=== PATIENT | male | born 1970 | race Caucasian/White ===

== ENCOUNTER → 2018-09-25 16:06 | Outpatient (CLI) | payer BC, SELFPAY ==
--- NOTE | 2018-09-25 16:12 | XR_ITS ---
XR chest 2V HISTORY: Cough ITS.REASON: BRONCHITIS ORDERING PHYSICIAN: Vivian Arciniega PATIENT AGE: 48 years COMPARISON: FINDINGS: The cardiomediastinal silhouette and pulmonary vascularity are within normal limits. The lungs are clear without infiltrates, suspicious nodules, or pleural effusions. There are degenerative changes in the thoracic spine No acute bony abnormalities. IMPRESSION: No acute finding
== END ==
PROVIDERS: PCP Family Medicine; Visit Provider Nurse Practitioner Family
DX: J40 Bronchitis, not specified as acute or chronic (principal)
CPT/HCPCS: 71046

== ENCOUNTER → 2021-10-25 15:32 | Outpatient (CLI) | payer BC, SELFPAY | PROVIDERS: PCP Family Medicine; Visit Provider Family Medicine | DX: Z20.822 Contact with and (suspected) exposure to COVID-19 (principal) | CPT/HCPCS: C9803; U0003; U0005 ==

== ENCOUNTER → 2021-11-10 09:12 | Outpatient (CLI) | payer BC, SELFPAY ==
--- NOTE | 2021-11-10 | CA_ITS ---
APPROVED REPORT Exam: Exercise Treadmill Technologist: Jing Carcamo, Ht: 6 ft 1 in Wt: 220 lbs BSA: 2.24 m2 HR: 65 bpm BP: 124/74 mmHg Rhythm: NSR, T wave abn in lead 3 and aVF Medical History Medical History: HTN, Hyperlipidemia Medications: Losartan,,,,, Crestor,,,,, Cardiac Risk Factors: HTN, Hyperlipidemia, FHX of CAD Stress Test Details Test: Ruben HR Resting HR: 90 bpm Max Heart Rate (APMHR): 169.175742 bpm Max HR Achieved: 161 bpm Target HR (85% APMHR): 143.050196 bpm % of APMHR: 95.27 Recovery HR: 146 bpm BP Resting BP: 133/86 mmHg Max BP: 210/84 mmHg Recovery BP: 210.0/90.0 mmHg ECG Resting ECG: NSR, T wave abn in lead 3 and aVF Clinical Exercise duration: 12:01 min Highest Stage Achieved: Exercise capacity: 12.8 METs Stress ECG Conclusion Pt exercised total of 12:00, completing 4 stages of ruben protocol. No CP noted. No arrhythmias noted. Normal ST response to exericse with pseudonormalization of baseline T wave abns. Probably normal GXT with decreased sensitivity due to baseline T wave abns. Good exercise tolerance. GXT only. Test Summary REST . . . . . . . Standing REST 03:07 0.0 0.0 90 . 133/ 86 . . Stage 1 01:00 10.0 1.7 90 . . . . Stage 1 02:00 10.0 1.7 98 . . . . Stage 1 03:00 10.0 1.7 99 . 164/ 80 . . Stage 2 01:00 12.0 2.5 110 . . . . Stage 2 02:00 12.0 2.5 118 . . . . Stage 2 03:00 12.0 2.5 117 . 186/ 80 . . Stage 3 01:00 14.0 3.4 131 . . . . Stage 3 02:00 14.0 3.4 138 . . . . Stage 3 03:00 14.0 3.4 140 . 210/ 84 . . Stage 4 01:00 16.0 4.2 150 . . . . Stage 4 02:00 16.0 4.2 157 . . . . Stage 4 03:00 16.0 4.2 160 . . . . Stage 5 00:01 18.0 5.0 160 . . . Stop exercise at 12:01 RECOVERY 01:00 0.0 0.0 142 . . . . RECOVERY 02:00 0.0 0.0 113 . 210/ 90 . . RECOVERY 03:00 0.0 0.0 108 . 126/ 81 . . RECOVERY 04:00 0.0 0.0 100 . 145/ 82 . . RECOVERY 05:00 0.0 0.0 94 . 136/ 74 . . RECOVERY 05:19 0.0 0.0 95 . 136/ 74 . . Electronically signed by : Pal Cuba MD 11/10/2021 11:44:21
== END ==
PROVIDERS: PCP Family Medicine; Visit Provider Family Medicine
DX: I10 Essential (primary) hypertension (principal)
CPT/HCPCS: 93017

== ENCOUNTER 2024-03-06 14:46 | Outpatient (POV) | payer BC, SELFPAY ==
[2024-03-06 15:00] VITALS: BP 147/95; PULSE 72; RESP 18; O2SAT 97; BMI 30.3
--- NOTE | 2024-03-06 16:17 | A.OFFVIS_ITS ---
HPI Data of Consult Patient: new to practice Consult date: 03/06/24 Requesting Physician: Matilde Pineda APRN Primary Care Provider: Barbie Barroso MD Consult Narrative Reason for consult: Low back pain, right leg pain, occasional left leg pain History of present illness: Mr. Middleton is a 53 year old male who presents today as a new patient. He is a referral from Dr. Barroso's office. Today he rates his pain a 7 out of 10. Patient states he has been experiencing chronic low back pain that does radiate down his entire right leg with occasional left leg symptoms. Patient states that this did originally start back in the and he did undergo a discectomy and laminectomy. Patient states then he later went to a Dr. Ely who did do an experimental injection of chymopapain however this caused significant worsening of issues. He states that he had to recover for this for about 6 months and then still was dealing with some additional side effects. Patient states that then in 2015 when he had worsening pain he went to Dr. Fisher who did discuss about a possible lumbar fusion however he was not interested in this option so they went and then just cleaned out some of his lumbar disc. Patient states it did help somewhat however he continues to have a constant aching, burning, tingling sensation into his extremity. Patient has tried oral medications, heat and ice and topicals with minimal relief. Patient does state that he went to physical therapy with no additional improvement and did go to the chiropractor for 6 different visits however they were not able to give any relief and ended up releasing him because there was not anything else that he could do. Patient does state that he has had some oral steroids that helped however it was short-lived. Patient is currently on Advil and meloxicam however states it is really not doing anything. His Neftaly has been reviewed and is appropriate. CC: Matilde Pineda APRN [facility] Disclaimer: The information contained in this section may have been updated after the patient was seen, as this information can be updated by other users. Medical History (Updated 03/06/24 @ 16:24 by Matilde Pineda APRN) HTN (hypertension) HLD (hyperlipidemia) Lumbar disc herniation Surgical History (Updated 03/06/24 @ 14:57 by Grace Evans RN) H/O microdiscectomy History of appendectomy Family History (Updated 03/06/24 @ 14:56 by Grace Evans RN) Other Heart disease Social History Smoking Status: Unknown if ever smoked alcohol intake: never current occupational status: other Travel in the last 8 weeks: None Review of Systems Review of Systems Review of systems:: pertinent systems reviewed and negative unless documented below Review of systems (narrative): Review of Systems: General: No recent weight changes, no fever, no sleep disturbances Respiratory: No cough, no shortness of air, no recurring pulmonary infections Cardiovascular/peripheral vascular: No chest pain, no palpitations, no edema, no shortness of breath Gastrointestinal: No new onset incontinence, normal bowel movements reported Genitourinary: No new onset incontinence Musculoskeletal: Low back pain, right leg pain, occasional left leg pain Psychiatric: [Normal mood/affect] Neurological: [Denies weakness in extremities], [denies balance issues] Meds Home Medications and Allergies New Prescriptions to Start Prescriptions: Allergies Allergy/AdvReac Type Severity Reaction Status Date / Time No Known Allergies Allergy Verified 03/06/24 14:54 Objective Narrative: Physical Exam: General: Alert and oriented x3, no acute distress, pleasant and cooperative Lungs: Respirations even and unlabored, symmetrical chest expansion Eyes: PERRL Musculoskeletal: Flexion and extension of lumbar [spine] somewhat guarded secondary to pain, [antalgic gait noted] Neurological: Speech clear, no gross sensory deficit Additional findings Additional findings: MRI lumbar spine with and without contrast Findings: There is mild thoracolumbar scoliosis. Schmorl's nodes are present at all visualized levels. Disc desiccation and mild disc space narrowing are present at the lower 4 lumbar levels. T10-11: No posterior disc displacement. Facet hypertrophy results in mild bilateral neuroforaminal narrowing. T11-12: No posterior disc displacement. Facet hypertrophy results in mild right and mild to moderate left neuroforaminal narrowing with mild narrowing of the thecal sac T12-L1: Disc space narrowing and disc desiccation are present. No posterior disc L1-L2: Mild circumferential disc bulge is present without significant stenosis or neuroforaminal encroachment L2-L3: Disc space narrowing, mild circumferential disc bulge with mild facet hyp ertrophy are present. Minimal narrowing of the thecal sac L3-L4: Mild disc bulge present. There is minimal narrowing of the neuroforamina and thecal sac L4-L5: There was previous laminotomy. Mild disc bulges present. Enhancement of the posterior disc. There is a posterior right lower disc extrusion extending caudally. This is surrounded by enhancing granulation tissue and there is also enhancement in the contiguous disc. Extrusion causes severe narrowing of the superior right subarticular zone with effacement of the right L5 nerve root. There is mild narrowing of the thecal sac. No significant neuroforaminal encroachment L5-S1: Evidence of previous left laminotomy. A slight retrolisthesis and a slight disc bulge are present. Mild facet hypertrophy present. Mild neuroforaminal narrowing without central spinal stenosis. Enhancing granulation tissue is present in the ventral leftward epidural space contiguous with that left S1 nerve root Assessment and Plan *Assessment and plan (1) Degenerative disc disease, lumbar: Status: Acute Category: Medical Code(s): M51.36 - Other intervertebral disc degeneration, lumbar region (2) Lumbar radiculopathy: Status: Acute Category: Medical Code(s): M54.16 - Radiculopathy, lumbar region (3) Lumbar nerve root impingement: Status: Acute Category: Medical Code(s): M54.16 - Radiculopathy, lumbar region Plan Patient is experiencing significant pain in his low back that does radiate down his entire right extremity. Patient did have limited range of motion of his lumbar spine. I did review over his lumbar imaging and discussed with the patient that I do believe he would benefit from a lumbar epidural steroid injection at the L4-L5 level. Risk and benefits were discussed with the patient and at this time he would like time to think on it and review over the medications that we will be in the injection. I have discussed with the patient that I will have him return to clinic in 2 weeks for reevaluation of symptoms and plan of care. Patient was counseled that he can call and schedule this injection over the phone if he decides to between now and the next appointment. Patient has been instructed to contact the clinic with any concerns before the next appointment. Dr. Dodd has reviewed this note and agrees with this plan of care. This note was dictated using voice recognition software and make contain errors or omissions. All injections are used with Lidocaine or Bupivacaine and Depo Medrol.
--- OUTSIDE RECORDS SUMMARY | 2024-03-07 04:13 | XMS_ITS ---
[facility] Address [address] [place] [id number] Care Team Providers Care Performance Test Engineer Name Role Phone Chris Esparza Primary Care Provider [phone] Archie Barroso Unavailable [phone] ALLERGIES No Known Allergies REASON FOR REFERRAL Reason L4-5 herniation, rig ht sciatica Diagnosis 1 Lumbago with sciatic a, right side (M54.41) [facility] Referring Provider First Name Archie Caro Referring Provider Last Name Dharmesh Referring Provider Speciality Family Pra ctice Referred Provider Specialty Pain Managem ent General Notes Brianna Menjivar 02/15/20 24 11:28:09 AM > faxed referral to [facility] Pain Management Referral Priority Routine REASON FOR VISIT 3 month f/u, Needs labs, colon cancer screening, Tdap, & shingles vaccine MEDICATIONS Medication SIG (Take, Route, Frequency, Duration) Notes Start Date End Date Status Losartan Potassium 50 MG 1 tablet Orally Two times a day for 90 days Active Triamterene-HCTZ 37.5-25 MG 1 cap(s) ora lly once a day for 90 days Active Medrol 4 MG as directed orally d aily for 6 days 02/15/2024 Active Meloxicam 15 MG take 1 tablet by karan th daily for 30 day(s) Active Rosuvastatin Calcium 40 MG 1 tablet Oral ly Once a day for 30 day(s) 11/08/2023 Active PROBLEMS Problem Type ICD Code Onset Dates Problem Status W/U Status Risk SNOMED Code Notes Problem Lumbar disc herniation (M51.26) Active confirmed 580333981 VITAL SIGNS Weight 233.2 lbs 02/15/2024 Blood pressure systolic 124 mm Hg 02/15/20 24 Blood pressure diastolic 82 mm Hg 024 Heart Rate 74 /min 02/15/2024 Height 74 in 02/15/2024 BMI 29.94 kg/m2 02/15/2024 Encounters Encounter Location Date Provider Diagnosis [facility] [address] [place] [address] [address] [place], [place] [id number] 02/15/2024 Archie Barroso Lumbago with sciatic a, right side M54.41 ; Other chronic pain G89.29 and Lumbar disc herniation M51.26 ASSESSMENTS Encounter Date Diagnosis Assessment Notes Treatment Notes Treatment Clinical Notes 02/15/2024 Lumbago with sciatica, right side (ICD-10 - M54.41) 02/15/2024 Other chronic pain (ICD-10 - G89.29) 02/15/2024 Lumbar disc herniation (ICD-10 - M51.26) PLAN OF TREATMENT Medication Medication Name Sig Start Date Stop Date Notes Medrol 4 MG as directed orally daily for 6 days 02/15/2024 Meloxicam 15 MG take 1 tablet by mouth daily for 30 day(s) Referrals Referral Date Details L4-5 herniation, rig ht sciatica Next Appt Details Follow Up: 2 Months, Reason: Provider Name:Archie Marroquin er, 04/17/2024 04:00:00 PM, [address] [place] [address], [address], [place], [place], [id number], Progress Notes * Examination Category Sub-Category Detail Notes General Examination HEENT: unremarkable Heart: RSR Lungs: clear to auscultatio n Abdomen: soft and nontender Extremities: no leg edema General Appearance: NAD Skin: normal, no rash Neurologic Exam: Intact, gait normal Neck: supple, no lymphaden opathy Oral cavity: no lesions, mucosa m oist and WNL, no erythema Peripheral pulses: normal Back: nontender lumbar par aspinals Chest: normal shape and exp ansion History and Physical Notes * HPI (History of Present Illness) Category Sub-Category Detail Notes Cardiology Short of Breath Chest Pain Palpitations Dizziness Consultation Request Notes Referral Date Referring Provider Referred Provider Not es 02/15/2024 Archie Barroso , L4-5 herni ation, right sciatica
--- OUTSIDE RECORDS SUMMARY | 2024-03-07 04:13 | XMS_ITS ---
Author Organization [facility] Address [address] [place] [id number] Care Team Providers Care High Density Finishing Operator Name Role Phone Chris Esparza Primary Care Provider ALLERGIES No Known Allergies REASON FOR VISIT back pain MEDICATIONS Medication SIG (Take, Route, Frequency, Duration) Notes Start Date End Date Status Meloxicam 15 MG 1 tablet Orally Once a day for 30 day(s) 11/29/2023 Active Triamterene-HCTZ 37.5-25 MG 1 cap(s) ora lly once a day for 90 days Active Rosuvastatin Calcium 40 MG 1 tablet Oral ly Once a day for 30 day(s) 11/08/2023 Active Losartan Potassium 50 MG 1 tablet Orally Two times a day for 90 days Active PROBLEMS Problem Type ICD Code Onset Dates Problem Status W/U Status Risk SNOMED Code Notes Problem Lumbago with sciatica, right side (M54.41) Active confirmed [id number] Problem Other chronic pain (G89.29) Active confirmed 67082558 VITAL SIGNS Weight 234.2 lbs 11/29/2023 Blood pressure systolic 130 mm Hg 11/29/19 24 Blood pressure diastolic 82 mm Hg 024 Heart Rate 70 /min 11/29/2023 Height 74 in 11/29/2023 BMI 30.07 kg/m2 11/29/2023 Encounters Encounter Location Date Provider Diagnosis [place] [address] [facility] [address] [place] [id number] 11/29/2023 Chris Esparza Lumbago with sciatic a, right side M54.41 ; Other chronic pain G89.29 and Right leg weakness R29.898 ASSESSMENTS Encounter Date Diagnosis Assessment Notes Treatment Notes Treatment Clinical Notes 11/29/2023 Lumbago with sciatica, right side (ICD-10 - M54.41) Home exercise program provided to patient 11/29/2023 Other chronic pain (ICD-10 - G89.29) 11/29/2023 Right leg weakness (ICD-10 - R29.898) PLAN OF TREATMENT Medication Medication Name Sig Start Date Stop Date Notes Meloxicam 15 MG 1 tablet Orally Once a day for 30 day(s) 0 11/29/2023 Treatment Notes Assessment Notes Lumbago with sciatica, right side Home e xercise program provided to patient Next Appt Details Follow Up: via phone to repo rt test results, Reason: Provider Name:Archie Marroquin er, 04/17/2024 04:00:00 PM, [address] [facility] [address] [facility], [address], [place], [place], [id number], Progress Notes * Examination Category Sub-Category Detail Notes General Examination General Appearance: NAD Lower back Straight leg raising test: posit gaye at 45 degrees on right Motor system: decreased hamstring strength on right Gait: normal Inspection: normal curvature of spine Palpation: no vertebral spine t enderness Range of motion: pain down right leg with hyperextension History and Physical Notes * HPI (History of Present Illness) Category Sub-Category Detail Notes Lower back radiation of pain Pt complains o f rt lower back pain that radiates down to rt ankle. Pt states he was putting up drywall on 11/09 and has had the pain since then. Pt has been icing area and taking Tylenol but pain has not improved
--- OUTSIDE RECORDS SUMMARY | 2024-03-07 04:13 | XMS_ITS | Patient Health Record ---
Author Organization [facility] Address [address] [place] [id number] Care Team Providers Care Curtain Stretcher Name Role Phone Chris Esparza Primary Care Provider Archie Barroso Unavailable [phone] ALLERGIES No Known Allergies RESULTS Component Value Reference Range Notes P-Comprehensive Metabolic Pa haim (CMP) Reviewed date:11/02/2023 09:10:23 AM Interpretation:bun 21 Performing Lab: Notes/Report: Test performed by [facility] [address] [place] [address] , [address], [place] [address] Kenton Mcpherson MD, Manufacturing Coordinator CLIA: [id number] Sodium 144 135-145 mEq/L Potassium 4.2 3.5-5.3 mEq/L Chloride 104 97-108 mEq/L CO2 27 22-32 mEq/L Glucose 92 65-99 mg/dL BUN 21 6-20 mg/dL Creatinine 1.07 0.70-1.30 mg/dL Calcium 9.9 8.6-10.4 mg/dL eGFR by Creatinine 83 >59 mL/min/1.73m2 Protein 7.2 6.0-8.3 g/dL Albumin 4.5 3.5-5.3 g/dL Alkaline Phosphatase 42 40-129 IU/L ALT (SGPT) 36 <5-55 IU/L AST (SGOT) 27 <5-46 IU/L Bilirubin, Total 1.0 <0.2-1.2 mg/dL A/G Ratio 1.7 1.1-2.5 mg/dL P-Lipid Panel Reviewed date:11/02/2023 09:10:23 AM Interpretation:non-hdl 136 Performing Lab: Notes/Report: Test performed by [facility] [address] [place] [address] Kenton Mcpherson MD, Manufacturing Coordinator CLIA: [id number] Cholesterol 176 <200 mg/dL Triglycerides 138 <150 mg/dL HDL Cholesterol 40 >39 mg/dL Cholesterol / HDL Ratio 4.40 0.00-4.99 Ratio Non-HDL Cholesterol 136 <130 mg/dL LDL Cholesterol (Calculation) 108 <130 mg/dL LDL Cholesterol Levels* Less than 100 mg/dL Optimal 100 to 129 mg/dL Near Optimal/ Above Optimal 130 to 159 mg/dL Borderline High 160 to 189 mg/dL High 190 mg/dL and above Very High * Categories as recommended by the 2004 ATPIII guidelines LDL/HDL Ratio 2.7 <3.3 Ratio LDL Cholesterol Patient History Test Date: 10/30/2023 LDL Results: 108 Units: mg/dL % Change: - P-PSA Reviewed date:11/02/2023 09:10:23 AM Interpretation:Normal Performing Lab: Notes/Report: Test performed by [facility] [address] [place], [place] [address] Kenton Mcpherson MD, Manufacturing Coordinator CLIA: [id number] PSA 0.56 <4.00 ng/mL Please note this is an ultrasensitive PSA assay with a lower limit of detection of 0.014 ng/mL. This test is performed by the [employer] ECLIA methodology. Values obtained with different assay methods or kits cannot be directly compared. REASON FOR REFERRAL Reason L4-5 herniation, rig ht sciatica Diagnosis 1 Lumbago with sciatic a, right side (M54.41) [facility] Referring Provider First Name Archie Gordo Referring Provider Last Name Dharmesh Referring Provider Speciality Family Pra ctice Referred Provider Specialty Pain Managem ent General Notes Brianna Menjivar 02/15/20 24 11:28:09 AM > faxed referral to [facility] Pain Management Referral Priority Routine MEDICATIONS Medication SIG (Take, Route, Frequency, Duration) Notes Start Date End Date Status Rosuvastatin Calcium 40 MG 1 tablet Oral [...] karan th daily for 30 day(s) Active SOCIAL HISTORY Sex Assigned At : Social History Observation Description Sex Assigned At Unknown PROBLEMS Problem Type ICD Code Onset Dates Problem Status W/U Status Risk SNOMED Code Notes Problem Essential hypertensi on (I10) Active confirmed 61766366 Problem Anxiety (F41.9) Active confirmed 808273 02 Problem Lumbago with sciatic a, right side (M54.41) Active confirmed 471150318 Problem Other chronic pain (G89.29) Active confirmed 51874062 Problem Upper respiratory tr act infection, unspecified type (J06.9) Active confirmed 82767804 Problem Lumbar disc herniati on (M51.26) Active confirmed 223321160 Problem Pure hypercholesterolemia (E78.00) Active confirmed 474875981 Problem Seasonal allergic rhinitis, unspecified trigger (J30.2) Active confirmed 130484865 VITAL SIGNS Heart Rate 74 /min 02/15/2024 Blood pressure diastolic 82 mm Hg 02/15/2024 Height 74 in 02/15/2024 Blood pressure systolic 124 mm Hg 02/15/2024 Weight 233.2 lbs 02/15/2024 BMI 29.94 kg/m2 02/15/2024 Encounters Encounter Location Date Provider Diagnosis [facility] [address] [facility] [address] [place], [place] [id number] 10/01/2023 Archie Barroso [facility] [address] [facility] [address] [place], [place] [id number] 10/01/2023 Chris Wingo Pure hypercholestero lemia E78.00 [facility] [address] [facility] [address] [place], [place] [id number] 10/30/2023 Archie Barroso Essential hypertensi on I10 ; Prostate cancer screening Z12.5 and Pure hypercholesterolemia E78.00 [facility] [address] [facility] [address] [place], [place] [id number] 10/30/2023 Chris Wingo [facility] [address] [facility] [address] [place], [place] [id number] 11/02/2023 Archie Barroso [facility] [address] [facility] [address] [place] [id number] 11/08/2023 Archie Barroso Pure hypercholestero lemia E78.00 and Essential hypertension I10 [facility] [address] [facility] [address] [place] [id number] 11/29/2023 Chris Wingo Lumbago with sciatic a, right side M54.41 ; Other chronic pain G89.29 and Right leg weakness R29.898 [facility] [address] [facility] [address] [place], [place] [id number] 12/04/2023 Chris Wingo [facility] [address] [facility] [address] [place] [id number] 02/15/2024 Archie Barroso Lumbago with sciatic a, right side M54.41 ; Other chronic pain G89.29 and Lumbar disc herniation M51.26 ASSESSMENTS Encounter Date Diagnosis Assessment Notes Treatment Notes Treatment Clinical Notes 02/15/2024 Lumbago with sciatic a, right side (ICD-10 - M54.41) 02/15/2024 Other chronic pain ( ICD-10 - G89.29) 10/01/2023 Pure hypercholestero lemia (ICD-10 - E78.00) 10/30/2023 Essential hypertensi on (ICD-10 - I10) 10/30/2023 Prostate cancer scre ening (ICD-10 - Z12.5) 11/08/2023 Pure hypercholestero lemia (ICD-10 - E78.00) 11/29/2023 Lumbago with sciatic a, right side (ICD-10 - M54.41) Home exercise program provided to patient 11/29/2023 Other chronic pain ( ICD-10 - G89.29) 11/29/2023 Right leg weakness ( ICD-10 - R29.898) 10/30/2023 Pure hypercholestero lemia (ICD-10 - E78.00) 11/08/2023 Essential hypertensi on (ICD-10 - I10) 02/15/2024 Lumbar disc herniati on (ICD-10 - M51.26) PLAN OF TREATMENT Next Appt Details Provider Name:Arhcie Gordo Lopez er, 04/17/2024 04:00:00 PM, [address] [facility], [address], [place], [place], [id number], Insurance Providers Payer Name Payer Address Payer Phone Subscriber Number Group Number Insured Name Patient Relationship to Insured Coverage Start Date Coverage End Date [facility] [address] [place] [address] [id number] MIA HESS Self - patient is the insured MEDICAL (GENERAL) HISTORY Medical History History ICD Code Lumbar Disc Herniation (L4-L5 - 2015 and L5-S1 - 1995) Hyperlipidemia Hypertension COVID 19 Vaccine, Moderna November/December 2020 COVID 19 Moderna, Booster Apr 2021 Dtap approx 2016 COVID 19 infection, latter April 2022 Surgical History Surgery Date(Month/Year) appedectomy 1980 back surgery L5- microdisectomy 1995 L4 disc - microdisectomy 07/21/2016 L4 - rupture, microdisectomy 01/13/2017 Hospitalization History Reason Date(Month/Year)
--- OUTSIDE RECORDS SUMMARY | 2024-03-07 04:13 | XMS_ITS ---
Author Organization [place] [address] [facility] [address] [facility] [place] [address] [place] [phone] Care Team Providers Care Special Education Associate Name Role Phone Chris Esparza Primary Care Provider REASON FOR VISIT Message MEDICATIONS Medication SIG (Take, Route, Fr equency, Duration) Notes Start Date End Date Status dexAMETHasone 4 MG 1 tablet Orally Two times a day for 5 day(s) 12/05/2023 Active Encounters Encounter Location Date Provider Diagnosis [place] [address] [facility] [address] [facility] [place] [address] [place] [phone] 12/04/2023 Chris Esparza PLAN OF TREATMENT Medication Medication Name Sig Start Date Stop Date Notes dexAMETHasone 4 MG 1 tablet Orally Two times a day for 5 day(s) 12/05/2023 Next Appt Details Provider Name:Archie Marroquin er, 04/17/2024 04:00:00 PM, [address] [facility] [address] [facility] [place], [address], [place], [phone],
== END 2024-03-06 23:59 | disposition home or self-care (01) ==
LOC: SC.PAIN 14:47
PROVIDERS: PCP Family Medicine; Visit Provider Nurse Practitioner Family
DX: M51.16 Intervertebral disc disorders with radiculopathy, lumbar region (principal)
CPT/HCPCS: 99202; G0463

== ENCOUNTER 2024-04-08 11:06 | Day surgery (SDC) | payer BC, SELFPAY ==
[2024-04-08 11:11] VITALS: BP 125/72; PULSE 66; RESP 16; TEMP 36.2; O2SAT 99; BMI 30.3
[2024-04-08 11:33] VITALS: BP 126/40; PULSE 62; RESP 18; O2SAT 97
[2024-04-08] MEDS: methylPREDNISolone ACETATE 80MG/ML VIAL 80 MG (11:33)
[2024-04-08 11:34] VITALS: BP 126/40; PULSE 62; RESP 18; O2SAT 97
[2024-04-08 11:38] VITALS: BP 125/78; PULSE 61; RESP 18; O2SAT 98
--- NOTE | 2024-04-08 11:39 | EXP.PAIN.PRO ---
Procedure Date: 04/08/24 Time: 11:20 Anesthesiologist:: Natan Thacker CRNA Complications:: None Pre-procedure Diagnosis:: Degenerative disc lumbar spine multilevels. Lumbar radiculopathy. Lumbar postlaminectomy syndrome. Post-procedure Diagnosis:: Same. Indications for Procedure:: Patient is a very pleasant 53-year-old male comes our clinic today for lumbar epidural steroid injection. Patient describes low back pain as well as bilateral hip and leg radicular symptoms. Patient status post 3 separate lumbar surgeries. No fusion at this time. However, multiple discectomy and laminectomy procedures. I will give his epidural at the L5-S1 level. Procedure Details:: Procedure: Lumbar epidural steroid injection under fluoroscopy Informed consent was obtained and the risks and benefits of the procedure were explained to the patient. The patient was taken to the procedure room and noninvasive monitors placed, including noninvasive blood pressure cuff and pulse oximeter. The back was viewed using C-arm Fluoroscopy and prepped using Chloraprep as a cleansing solution and the L5-S1 interspace was palpated. Skin and subcutaneous tissues were anesthetized using lidocaine 1.5% and a 25-gauge needle. After this, an 18-gauge Touhy epidural needle was placed into the L5-S1 interspace and advanced using fluoroscopic guidance and loss of resistance to air until the epidural space was encountered. After confirmation of needle placement in the epidural space, with dye, a solution containing normal saline, 3 mL and Depo-Medrol 80 mg were incrementally injected into the lumbar epidural space. The patient tolerated the procedure well with no complications. The patient was observed in the Pain Clinic and then discharged home neurologically intact. Plan and Disposition:: Patient was discharged without incident.
== END 2024-04-08 11:38 | disposition home or self-care (01) ==
PROVIDERS: PCP Family Medicine; Visit Provider Nurse Anesthetist, Certified Registered
DX: M51.16 Intervertebral disc disorders with radiculopathy, lumbar region (principal); M96.1 Postlaminectomy syndrome, not elsewhere classified
CPT/HCPCS: 62323; J1010

== ENCOUNTER 2024-05-07 10:44 | Outpatient (POV) | payer BC, SELFPAY ==
[2024-05-07 11:21] VITALS: BP 137/73; PULSE 65; RESP 18; O2SAT 97; BMI 31.4
--- NOTE | 2024-05-07 12:15 | EXP.PAIN.SOA ---
[facility] Disclaimer: The information contained in this section may have been updated after the patient was seen, as this information can be updated by other users. Medical History HTN (hypertension) HLD (hyperlipidemia) Lumbar disc herniation Surgical History H/O microdiscectomy History of appendectomy Family History Other Heart disease Social History Smoking Status: Unknown if ever smoked alcohol intake: never current occupational status: employed Travel in the last 8 weeks: None PM Subjective & Objective Subjective Subjective:: Patient is a pleasant 53-year-old male who presents today for follow-up of lumbar epidural steroid injection L5-S1 on 04/08/2024. Today he rates his pain a 5 out of 10. Patient states that it did take about 4 to 5 days for the injection really to kick in but that it has provided 85 to 90% improvement. He does state that he has pain in other areas however they are still very manageable now that the overall low back and leg symptoms have improved. He denies any other changes. His Neftaly has been reviewed and is appropriate. Review of Systems: General: No recent weight changes, no fever, no sleep disturbances Respiratory: No cough, no shortness of air, no recurring pulmonary infections Cardiovascular/peripheral vascular: No chest pain, no palpitations, no edema, no shortness of breath Gastrointestinal: No new onset incontinence, normal bowel movements reported Genitourinary: No new onset incontinence Musculoskeletal: Low back pain Psychiatric: [Normal mood/affect] Neurological: [Denies weakness in extremities], [denies balance issues] Pain at rest (0-10 scale): 5 Objective Objective:: Physical Exam: General: Alert and oriented x3, no acute distress, pleasant and cooperative Lungs: Respirations even and unlabored, symmetrical chest expansion Eyes: PERRL Musculoskeletal: Flexion and extension of lumbar [spine] somewhat guarded secondary to pain, [antalgic gait noted] Neurological: Speech clear, no gross sensory deficit Has patient had previous pain injection?: Yes Percent improvement in pain since last injection: 85 to 90% Conservative treatment options previously tried: Home exercise plan Length of treatment: Longer than 6 weeks Meds Home Medications and Allergies Home Medications ?Medication ?Instructions ?Recorded ?Confirmed ?Type losartan 50 mg tablet 50 mg PO BID BLOOD PRESSURE 03/07/24 05/07/24 History meloxicam 15 mg tablet 15 mg PO DAILY Pain 03/07/24 05/07/24 History rosuvastatin 40 mg tablet 40 mg PO DAILY Cholesterol 03/07/24 05/07/24 History triamterene 37.5 1 cap PO DIRECTED . 03/07/24 05/07/24 History mg-hydrochlorothiazide 25 mg capsule New Prescriptions to Start Prescriptions: Allergies Allergy/AdvReac Type Severity Reaction Status Date / Time No Known Allergies Allergy Verified 03/06/24 14:54 Assessment and Plan *Assessment and plan (1) Lumbar nerve root impingement: Status: Acute Category: Medical Code(s): M54.16 - Radiculopathy, lumbar region (2) Lumbar radiculopathy: Status: Acute Category: Medical Code(s): M54.16 - Radiculopathy, lumbar region (3) Degenerative disc disease, lumbar: Status: Acute Category: Medical Code(s): M51.36 - Other intervertebral disc degeneration, lumbar region Plan Patient has had significant improvement and does not require any additional injection therapy at this time. Patient will return to clinic in 2 months for reevaluation of symptoms and plan of care. Patient has been instructed to contact the clinic with any concerns before the next appointment. Dr. Dodd has reviewed this note and agrees with this plan of care. This note was dictated using voice recognition software and make contain errors or omissions. All injections are used with Lidocaine or Bupivacaine and Depo Medrol.
== END 2024-05-07 23:59 | disposition home or self-care (01) ==
LOC: SC.PAIN 10:45
PROVIDERS: PCP Family Medicine; Visit Provider Nurse Practitioner Family
DX: M51.16 Intervertebral disc disorders with radiculopathy, lumbar region (principal)
CPT/HCPCS: 99212; G0463